=== PATIENT | female | born 1965 | race Caucasian/White ===

== ENCOUNTER 2016-11-11 08:30 | Emergency (ER) | payer BC ==
[2016-11-11 08:41] VITALS: BMI 30.5
[2016-11-11 08:49] VITALS: RESP 18; TEMP 98.7
--- NOTE | 2016-11-11 09:14 | ED PDOC ---
Arrival/HPI - General Historian: Patient - History of Present Illness Time/Duration: < month (2 weeks ) Symptom Onset: Sudden Quality: Aching Severity Level: 7 Activities at Onset: Rest Context: Home <Adry Nuñez - Last Filed: 11/11/16 10:50> <Mason Dial - Last Filed: 11/11/16 12:37> - General Chief Complaint: Headache Time Seen by Provider: 11/11/16 08:46 - History of Present Illness Narrative History of Present Illness (Text): 11/11/16 09:35 This is a 51Y F with PMH of borderline DM who came to ED with headache x 2 weeks. The headache is located on the R side of her head and radiates down to her neck. It is on and off all day. She tried to use Excedrin 2 pills every 4 hours without any relief. She does not know what makes it worse. She denies vision changes, neck stiffness, fever/chills, numbness/tingling, or trauma. When she has these headaches she gets nauseous, but has not vomited. The patient does not take any other medications and denies increased stress. ( Adry Nuñez) Past Medical History - Provider Review Nursing Documentation Reviewed: Yes - Travel History Have you recently traveled outside [place] w/in the past 3 mons?: No - Infectious Disease Hx of Infectious Diseases: None - Cardiac Hx Cardiac Disorders: No - Pulmonary Hx Respiratory Disorders: No - Neurological Hx Neurological Disorder: No - HEENT Hx HEENT Disorder: No - Renal Hx Renal Disorder: No - Hematological/Oncological Hx Blood Disorders: No - Integumentary Hx Dermatological Disorder: No - Musculoskeletal/Rheumatological Hx Musculoskeletal Disorders: No - Gastrointestinal Hx Gastrointestinal Disorders: No - Genitourinary/Gynecological Hx Genitourinary Disorders: No - Psychiatric Hx Psychophysiologic Disorder: No <Adry Nuñez - Last Filed: 11/11/16 10:50> Family/Social History - Physician Review Nursing Documentation Reviewed: Yes Family/Social History: Neoplasm/Cancer (mom- breast cancer) Smoking Status: Never Smoked Hx Alcohol Use: Yes Frequency of alcohol use: Socially Hx Substance Use: No <Adry Nuñez - Last Filed: 11/11/16 10:50> Allergies/Home Meds <Adry Nuñez - Last Filed: 11/11/16 10:50> <Mason Dial - Last Filed: 11/11/16 12:37> Allergies/Adverse Reactions: Allergies No Known Allergies Allergy (Verified 11/11/16 08:41) Review of Systems - Physician Review All systems were reviewed & negative as marked: Yes - Review of Systems Constitutional: Normal. absent: Fevers Eyes: Normal. absent: Vision Changes, Photophobia, Eye Pain ENT: Normal. absent: Hearing Changes Respiratory: Normal. absent: SOB, Cough Cardiovascular: Normal. absent: Chest Pain, Palpitations Gastrointestinal: Nausea (when has headaches). absent: Abdominal Pain, Diarrhea Musculoskeletal: Normal. absent: Arthralgias, Neck Pain Skin: Normal. absent: Rash Neurological: Headache. absent: Dizziness, Focal Weakness, Gait Changes, Speech Changes, Facial Droop, Seizure Endocrine: Normal. absent: Diaphoresis Psychiatric: Normal. absent: Anxiety, Depression <Adry Nuñez - Last Filed: 11/11/16 10:50> Physical Exam Vital Signs Reviewed: Yes Temperature: Afebrile Blood Pressure: Normal Pulse: Regular Respiratory Rate: Normal Appearance: Positive for: Well-Appearing, Non-Toxic, Comfortable Pain Distress: None Mental Status: Positive for: Alert and Oriented X 3 - Systems Exam Head: Present: Atraumatic, Normocephalic Pupils: Present: PERRL Extroacular Muscles: Present: EOMI Conjunctiva: Present: Normal Mouth: Present: Moist Mucous Membranes Neck: Present: Normal Range of Motion, Paraspinal Tenderness Respiratory/Chest: Present: Clear to Auscultation, Good Air Exchange. No: Respiratory Distress, Accessory Muscle Use Cardiovascular: Present: Regular Rate and Rhythm, Normal S1, S2. No: Murmurs Abdomen: Present: Normal Bowel Sounds. No: Tenderness, Distention, Peritoneal Signs Upper Extremity: Present: Normal Inspection. No: Cyanosis, Edema Lower Extremity: Present: Normal Inspection. No: Edema Neurological: Present: GCS=15, CN II-XII Intact, Speech Normal, Motor Func Grossly Intact, Normal Sensory Function, Gait Normal Skin: Present: Warm, Dry, Normal Color. No: Rashes Psychiatric: Present: Alert, Oriented x 3, Normal Insight, Normal Concentration <Adry Nuñez - Last Filed: 11/11/16 10:50> <Mason Dial - Last Filed: 11/11/16 12:37> Vital Signs Temp Pulse Resp BP Pulse Ox 11/11/16 10:51 69 18 119/82 97 11/11/16 08:48 98.7 F 88 18 126/85 98 11/11/16 08:45 98.7 F 88 18 126/85 98 Medical Decision Making Re-evaluation Time: 10:19 Reassessment Condition: Improving,but remains with symptoms <Adry Nuñez - Last Filed: 11/11/16 10:50> <Mason Dial - Last Filed: 11/11/16 12:37> ED Course and Treatment: 11/11/16 09:39 Impression: This is a 51Y F with PMH of borderline DM who came to ED with headache x 2 weeks. Differential Diagnosis included but are not limited to: migraine vs. ICH vs. tension headache Plan: -- Head CT -- Motrin -- Reassess and disposition CT HEAD WITHOUT CONTRAST. HISTORY: headache COMPARISON: None available. FINDINGS: HEMORRHAGE: No intracranial hemorrhage. BRAIN: Normal issa-white matter differentiation and density are appreciated throughout the cerebrum cerebellum and brainstem. There is no mass effect. There is no suspicious extra-axial fluid collection in the midline brain and appears diffusely unremarkable. VENTRICLES: Unremarkable. No hydrocephalus. CALVARIUM: Unremarkable. PARANASAL SINUSES: Unremarkable as visualized. No significant inflammatory changes. MASTOID AIR CELLS: Unremarkable as visualized. No inflammatory changes. OTHER FINDINGS: None. IMPRESSION: Unremarkable unenhanced head CT. Progress Notes: 11/11/16 09:44 Patient feeling better. Headache has improved. Discharge Instructions: Re-evaluation. Patient feels better. Discussed results and plan with patient who expresses understanding. All questions answered and there is agreement with the plan to discharge home with instructions. Patient stable for discharge. Return if symptoms persist or worsen. (Adry Nuñez) 11/11/16 10:17 Patient Seen With Resident: In agreement with resident note which contains more details about the patient. Patient was seen and evaluated with resident. Came up with plan and treatment together. 51 y/o F p/w headache. On exam, no nuchal rigidity. Negative Kernig/ Brudzinski. Pupils constrict with light, temporal arteries 2+. Patient in no acute distress. (Mason Dial) - RAD Interpretation Radiology Orders: 11/11/16 09:14 HEAD W/O CONTRAST [CT] Stat - Medication Orders Current Medication Orders: Discontinued Medications Ibuprofen (Motrin Tab) 600 mg PO STAT STA Stop: 11/11/16 09:46 Last Admin: 11/11/16 09:54 Dose: 600 mg <Adry Nuñez - Last Filed: 11/11/16 10:50> - Scribe Statement The provider has reviewed the documentation as recorded by the Scribe <Mason Dial - Last Filed: 11/11/16 12:37> - Scribe Statement Jennifer Roberson Provider Scribe Attestation: All medical record entries made by the Scribe were at my direction and personally dictated by me. I have reviewed the chart and agree that the record accurately reflects my personal performance of the history, physical exam, medical decision making, and the department course for this patient. I have also personally directed, reviewed, and agree with the discharge instructions and disposition. (Mason Dial) Disposition/Present on Arrival - Present on Arrival Any Indicators Present on Arrival: No - Disposition Have Diagnosis and Disposition been Completed?: Yes Disposition Time: 10:51 Patient Plan: Discharge <Adry Nuñez - Last Filed: 11/11/16 10:50> <Mason Dial - Last Filed: 11/11/16 12:37> - Disposition Diagnosis: Headache Disposition: HOME/ ROUTINE Condition: GOOD Discharge Instructions (ExitCare): General Headache (ED) Print Language: KHMER Additional Instructions: Ms. Smith, thank you for letting us take care of you today. Your provider was Dr. Nuñez. You were treated for headache. The emergency medical care you received today was directed at your acute symptoms. If you were prescribed any medication, please fill it and take as directed. It may take several days for your symptoms to resolve. Return to the Emergency Department if your symptoms worsen, do not improve, or if you have any other problems. Please contact your doctor or call one of the physicians/clinics you have been referred to that are listed on the Patient Visit Information form that is included in your discharge packet. Bring any paperwork you were given at discharge with you along with any medications you are taking to your follow up visit. Our treatment cannot replace ongoing medical care by a primary care provider (PCP) outside of the emergency department. Thank you for allowing the [facility] team to be part of your care today. Prescriptions: Ibuprofen [Motrin] 600 mg PO Q6H PRN #30 tab PRN Reason: Headache Referrals: [facility] at [facility] [Outside] - Follow up with primary Forms: [employer] (Slovak)
--- NOTE | 2016-11-11 09:36 | CT ---
PROCEDURE: CT HEAD WITHOUT CONTRAST. HISTORY: headache COMPARISON: None available. TECHNIQUE: Axial computed tomography images were obtained through the head/brain without intravenous contrast. Radiation dose: Total exam DLP = 750 mGy-cm. This CT exam was performed using one or more of the following dose reduction techniques: Automated exposure control, adjustment of the mA and/or kV according to patient size, and/or use of iterative reconstruction technique. FINDINGS: HEMORRHAGE: No intracranial hemorrhage. BRAIN: Normal issa-white matter differentiation and density are appreciated throughout the cerebrum cerebellum and brainstem. There is no mass effect. There is no suspicious extra-axial fluid collection in the midline brain and appears diffusely unremarkable. VENTRICLES: Unremarkable. No hydrocephalus. CALVARIUM: Unremarkable. PARANASAL SINUSES: Unremarkable as visualized. No significant inflammatory changes. MASTOID AIR CELLS: Unremarkable as visualized. No inflammatory changes. OTHER FINDINGS: None. IMPRESSION: Unremarkable unenhanced head CT.
[2016-11-11 10:52] VITALS: BP 119/82; PULSE 69; O2SAT 97
== END 2016-11-11 11:11 | disposition home or self-care (01) ==
LOC: ED 08:30
DX: R51 Headache (principal)